=== PATIENT | female | born 1945 | race African-American/Black ===

== ENCOUNTER 2021-07-10 21:27 | Inpatient (IN) | payer MEDICARE, OTHER ==
[2021-07-10 23:42] LABS: Calcium 8.9 mg/dL (7.8-10.44); Chloride 107 mmol/L (98-107); Potassium 3.9 mmol/L (3.5-5.1); Sodium 141 mmol/L (136-145)
[2021-07-10 23:43] LABS: Protein, Total 6.4 g/dL (5.8-8.1)
[2021-07-10 23:45] LABS: Anion Gap 21 mmol/L (10-20); Bilirubin, Total 1.4 mg/dL (0.2-1.2); Carbon Dioxide 17 mmol/L (23-31)
[2021-07-10 23:46] LABS: Calc. Creatinine Clearance 0 mL/min (70-130)
[2021-07-10 23:48] LABS: AST (SGOT) 24 U/L (5-34)
[2021-07-11 00:02] LABS: Hemoglobin 10.9 g/dL (12.0-16.0); Mean Corpuscular HGB CONC 32.5 g/dL (32.0-36.0); Mean Corpuscular Hemoglobin 26.8 pg (27.0-31.0); Mean Corpuscular Volume 82.4 fL (78.0-98.0); Mean Platelet Volume 8.2 fL (7.4-10.4); Platelet Count 403 thou/uL (130-400); RBC Distribution Width 16.1 % (11.5-14.5); Red Blood Cell (RBC) Count 4.07 mill/uL (4.20-5.40); White Blood Cell (WBC) Count 8.7 thou/uL (4.8-10.8)
[2021-07-11] MEDS ORDERED: Cefepime 2 GM VIAL ONE (00:06)
[2021-07-11 00:16] LABS: Albumin 3.2 g/dL (3.4-4.8); BUN (Urea Nitrogen) 19 mg/dL (9.8-20.1); Globulin 3.3 g/dL (2.4-3.5); Glucose 181 mg/dL (83-110)
[2021-07-11 00:26] LABS: #Lymphocytes 0.7 thou/uL (1.20-3.40); #Monocytes 0.3 thou/uL (0.11-0.59); #Neutrophils 2.1 thou/uL (1.40-6.50); %Basophils 0.2 % (0.0-1.0); %Eosinophils 0.7 % (0.0-10.0); %Lymphocytes 23.5 % (21.0-51.0); %Monocytes 7.8 % (0.0-10.0); %Neutrophils 67.8 % (42.0-75.0); Band 3 % (5-11); Large Platelets SLIGHT; Lymphocytes 19 % (21-51); MDiff Complete? YES; Monocytes 9 % (0-10); Neutrophil 69 % (42-75); Platelet Morphology Comment Appears Increased; RBC Morphology Normal
[2021-07-11 00:54] LABS: Bacteria/HPF 4+ HPF (None Seen); Bilirubin Negative (Negative); Blood, Urine Negative (Negative); Clarity Turbid (Clear); Glucose, Urine (Dipstick) Normal (Negative); Ketone, Urine Negative (Negative); Leukocyte 75 Leu/uL (Negative); Nitrite Negative (Negative); Protein, Urine (Dipstick) 20 mg/dL (Neg-Trace); RBC/HPF 0-3 HPF (0-3); Specific Gravity, Urine 1.009 (1.002-1.036); Urobilinogen Normal mg/dL (Less than 2)
[2021-07-11] MEDS ORDERED: Vancomycin 1 GM/200 ML BAG ONE (02:33)
[2021-07-11 03:06] LABS: Lactic Acid 5.3 mmol/L (0.5-2.2)
[2021-07-11] MEDS ORDERED: Acetaminophen 325 MG TAB PO PRN (03:30)
[2021-07-11] MEDS ORDERED: Ondansetron PF 4 MG/2 ML Vial IVP PRN (03:30)
[2021-07-11] MEDS ORDERED: Ondansetron ODT 4 MG TAB SL PRN (03:30)
[2021-07-11] MEDS ORDERED: Dextrose 5% in Water 1,000 ML IV PRN (05:41)
[2021-07-11] MEDS ORDERED: HumaLOG 300 UNITS/3 ML VIAL SC PRN (05:41)
[2021-07-11] MEDS ORDERED: Dextrose 50% Abboject 50 ML SYRINGE SLOW IVP PRN (05:41)
[2021-07-11] MEDS ORDERED: Vancomycin 1 GM in Premix Bag 1 BAG IVPB SCH (07:45)
[2021-07-11 08:06] LABS: #Eosinphils 0.2 thou/uL (0.0-0.7); #Lymphocytes 1.4 thou/uL (1.20-3.40); #Monocytes 0.5 thou/uL (0.11-0.59); #Neutrophils 5.5 thou/uL (1.40-6.50); %Basophils 0.2 % (0.0-1.0); %Eosinophils 2.6 % (0.0-10.0); %Lymphocytes 18.6 % (21.0-51.0); %Monocytes 6.7 % (0.0-10.0); Mean Corpuscular Hemoglobin 26.6 pg (27.0-31.0); Platelet Count 411 thou/uL (130-400); RBC Distribution Width 15.8 % (11.5-14.5); Red Blood Cell (RBC) Count 4.14 mill/uL (4.20-5.40); White Blood Cell (WBC) Count 7.6 thou/uL (4.8-10.8)
[2021-07-11] MEDS: Metoprolol Tartrate 100 MG TAB PO SCH ×2 (08:25→21:41)
[2021-07-11] MEDS: Hydrochlorothiazide 25 MG TAB PO SCH (08:25)
[2021-07-11] MEDS: Enoxaparin Sodium 40 MG/0.4 ML SYRINGE SC SCH (08:25)
[2021-07-11 08:27] LABS: Anion Gap 18 mmol/L (10-20); BUN (Urea Nitrogen) 20 mg/dL (9.8-20.1); Calc. Creatinine Clearance 59 mL/min (70-130); Calcium 9.1 mg/dL (7.8-10.44); Carbon Dioxide 25 mmol/L (23-31); Chloride 105 mmol/L (98-107); Glucose 189 mg/dL (83-110); Potassium 3.5 mmol/L (3.5-5.1); Sodium 144 mmol/L (136-145)
[2021-07-11] MEDS: Lactated Ringer's 1,000 ML IV SCH ×2 (08:27→17:02)
[2021-07-11] MEDS: Sodium Chloride 0.9% 1,000 ML IV SCH ×2 (08:28→12:52)
[2021-07-11] MEDS: Minoxidil 10 MG TAB PO SCH (09:17)
[2021-07-11 09:51] LABS: Lactic Acid 1.9 mmol/L (0.5-2.2)
[2021-07-11] MEDS ORDERED: Cefepime 2 GM in Sodium Chloride 0.9% 100 ML IVPB SCH (13:00)
[2021-07-11] MEDS: Cefepime 2 GM in Sodium Chloride 0.9% 100 ML IVPB SCH (13:48)
[2021-07-12] MEDS: Lactated Ringer's 1,000 ML IV SCH ×4 (00:26→20:51)
[2021-07-12] MEDS: Cefepime 2 GM in Sodium Chloride 0.9% 100 ML IVPB SCH ×2 (01:33→13:19)
[2021-07-12 04:35] LABS: #Eosinphils 0.3 thou/uL (0.0-0.7); #Lymphocytes 0.6 thou/uL (1.20-3.40); #Monocytes 0.4 thou/uL (0.11-0.59); #Neutrophils 8.7 thou/uL (1.40-6.50); %Basophils 0.4 % (0.0-1.0); %Eosinophils 2.8 % (0.0-10.0); %Lymphocytes 6.4 % (21.0-51.0); %Monocytes 3.9 % (0.0-10.0); %Neutrophils 86.5 % (42.0-75.0); Hemoglobin 11.5 g/dL (12.0-16.0); Mean Corpuscular HGB CONC 33.3 g/dL (32.0-36.0); Mean Corpuscular Hemoglobin 27.7 pg (27.0-31.0); Mean Corpuscular Volume 83.2 fL (78.0-98.0); Mean Platelet Volume 7.2 fL (7.4-10.4); Platelet Count 412 thou/uL (130-400); Red Blood Cell (RBC) Count 4.15 mill/uL (4.20-5.40)
[2021-07-12 05:06] LABS: Anion Gap 16 mmol/L (10-20); BUN (Urea Nitrogen) 21 mg/dL (9.8-20.1); Calc. Creatinine Clearance 62 mL/min (70-130); Calcium 8.9 mg/dL (7.8-10.44); Carbon Dioxide 26 mmol/L (23-31); Chloride 106 mmol/L (98-107); Glucose 176 mg/dL (83-110); Potassium 3.6 mmol/L (3.5-5.1); Sodium 144 mmol/L (136-145)
[2021-07-12] MEDS: HumaLOG 300 UNITS/3 ML VIAL SC PRN ×3 (06:09→16:38)
[2021-07-12] MEDS: Minoxidil 10 MG TAB PO SCH (08:38)
[2021-07-12] MEDS: Hydrochlorothiazide 25 MG TAB PO SCH (08:38)
[2021-07-12] MEDS: Metoprolol Tartrate 100 MG TAB PO SCH ×2 (08:38→20:50)
[2021-07-12] MEDS: Enoxaparin Sodium 40 MG/0.4 ML SYRINGE SC SCH ×2 (08:38→20:45)
[2021-07-12 08:54] LABS: Vancomycin, Random 8.2 ug/mL (See Comment)
[2021-07-12] MEDS ORDERED: Vancomycin 1 GM in Premix Bag 1 BAG IVPB SCH (09:00)
[2021-07-12] MEDS ORDERED: VANCOMYCIN 2 GRAM/400 ML BAG 2 GM in Premix Bag 1 BAG IVPB SCH (10:00)
[2021-07-13] MEDS: Lactated Ringer's 1,000 ML IV SCH ×2 (00:36→04:45)
[2021-07-13] MEDS: Cefepime 2 GM in Sodium Chloride 0.9% 100 ML IVPB SCH (00:40)
[2021-07-13 07:30] LABS: #Eosinphils 0.3 thou/uL (0.0-0.7); #Lymphocytes 0.7 thou/uL (1.20-3.40); #Monocytes 0.3 thou/uL (0.11-0.59); #Neutrophils 8.6 thou/uL (1.40-6.50); %Eosinophils 3.3 % (0.0-10.0); %Lymphocytes 7.3 % (21.0-51.0); %Monocytes 3.2 % (0.0-10.0); %Neutrophils 86.1 % (42.0-75.0); Hemoglobin 10.9 g/dL (12.0-16.0); Mean Corpuscular HGB CONC 32.4 g/dL (32.0-36.0); Mean Corpuscular Hemoglobin 26.9 pg (27.0-31.0); Platelet Count 382 thou/uL (130-400); RBC Distribution Width 15.9 % (11.5-14.5); Red Blood Cell (RBC) Count 4.07 mill/uL (4.20-5.40)
[2021-07-13 07:48] LABS: Anion Gap 13 mmol/L (10-20); BUN (Urea Nitrogen) 20 mg/dL (9.8-20.1); Calc. Creatinine Clearance 66 mL/min (70-130); Calcium 8.6 mg/dL (7.8-10.44); Carbon Dioxide 26 mmol/L (23-31); Chloride 107 mmol/L (98-107); Glucose 162 mg/dL (83-110); Potassium 3.5 mmol/L (3.5-5.1); Sodium 142 mmol/L (136-145)
[2021-07-13] MEDS: Hydrochlorothiazide 25 MG TAB PO SCH (08:30)
[2021-07-13] MEDS: Fluticasone Propionate Nasal Spray 16 gm Bottle NASAL SCH (08:31)
[2021-07-13] MEDS: Metoprolol Tartrate 100 MG TAB PO SCH ×2 (08:31→21:58)
[2021-07-13] MEDS: Enoxaparin Sodium 40 MG/0.4 ML SYRINGE SC SCH ×2 (08:31→21:58)
[2021-07-13] MEDS: Minoxidil 10 MG TAB PO SCH (08:32)
[2021-07-13] MEDS: Sulfameth/Trimethoprim DS 800-160mg TAB PO SCH (21:58)
[2021-07-14] MEDS: Lactated Ringer's 1,000 ML IV SCH ×2 (01:00→10:17)
[2021-07-14] MEDS: HumaLOG 300 UNITS/3 ML VIAL SC PRN ×3 (06:33→16:37)
[2021-07-14 06:37] LABS: #Eosinphils 0.4 thou/uL (0.0-0.7); #Lymphocytes 0.7 thou/uL (1.20-3.40); #Monocytes 0.4 thou/uL (0.11-0.59); #Neutrophils 8.2 thou/uL (1.40-6.50); %Basophils 0.1 % (0.0-1.0); %Eosinophils 3.8 % (0.0-10.0); %Lymphocytes 7.6 % (21.0-51.0); %Monocytes 4.3 % (0.0-10.0); %Neutrophils 84.3 % (42.0-75.0); Hemoglobin 10.9 g/dL (12.0-16.0); Mean Corpuscular HGB CONC 32.3 g/dL (32.0-36.0); Mean Corpuscular Hemoglobin 26.5 pg (27.0-31.0); Mean Corpuscular Volume 82.1 fL (78.0-98.0); Mean Platelet Volume 6.9 fL (7.4-10.4); Platelet Count 422 thou/uL (130-400); Red Blood Cell (RBC) Count 4.11 mill/uL (4.20-5.40); White Blood Cell (WBC) Count 9.7 thou/uL (4.8-10.8)
[2021-07-14] MEDS: Metoprolol Tartrate 100 MG TAB PO SCH ×2 (08:44→21:17)
[2021-07-14] MEDS: Hydrochlorothiazide 25 MG TAB PO SCH (08:44)
[2021-07-14] MEDS: Sulfameth/Trimethoprim DS 800-160mg TAB PO SCH ×2 (08:44→21:16)
[2021-07-14] MEDS: Minoxidil 10 MG TAB PO SCH (08:44)
[2021-07-14] MEDS: Enoxaparin Sodium 40 MG/0.4 ML SYRINGE SC SCH ×2 (08:44→21:16)
[2021-07-14] MEDS: Fluticasone Propionate Nasal Spray 16 gm Bottle NASAL SCH (08:45)
[2021-07-14 09:42] LABS: Vancomycin, Trough 25.8 ug/mL
[2021-07-14] MEDS ORDERED: Furosemide 20 MG/2 ML VIAL SLOW IVP SCH (13:30)
[2021-07-14] MEDS ORDERED: Acetaminophen 325 MG TAB PO PRN (15:29)
[2021-07-14 15:52] LABS: SARS-CoV-2 PCR by NAA Not Detected (NotDetected)
[2021-07-15] MEDS: HumaLOG 300 UNITS/3 ML VIAL SC PRN ×2 (06:29→10:56)
[2021-07-15] MEDS: Enoxaparin Sodium 40 MG/0.4 ML SYRINGE SC SCH ×2 (08:09→20:38)
[2021-07-15] MEDS: Fluticasone Propionate Nasal Spray 16 gm Bottle NASAL SCH (08:09)
[2021-07-15] MEDS: Metoprolol Tartrate 100 MG TAB PO SCH ×2 (08:10→20:38)
[2021-07-15] MEDS: Sulfameth/Trimethoprim DS 800-160mg TAB PO SCH (08:10)
[2021-07-15] MEDS: Minoxidil 10 MG TAB PO SCH (08:10)
[2021-07-15] MEDS: Hydrochlorothiazide 25 MG TAB PO SCH (08:10)
[2021-07-15] MEDS ORDERED: Furosemide 20 MG/2 ML VIAL SLOW IVP SCH (09:45)
[2021-07-15 13:01] LABS: Anion Gap 10 mmol/L (10-20); BUN (Urea Nitrogen) 24 mg/dL (9.8-20.1); Calc. Creatinine Clearance 52 mL/min (70-130); Calcium 8.6 mg/dL (7.8-10.44); Carbon Dioxide 27 mmol/L (23-31); Chloride 106 mmol/L (98-107); Glucose 192 mg/dL (83-110); Potassium 3.4 mmol/L (3.5-5.1); Sodium 140 mmol/L (136-145)
[2021-07-15] MEDS ORDERED: Potassium Chloride 20 MEQ TAB PO SCH (15:00)
[2021-07-16 05:26] LABS: #Eosinphils 0.4 thou/uL (0.0-0.7); #Lymphocytes 0.9 thou/uL (1.20-3.40); #Monocytes 0.4 thou/uL (0.11-0.59); %Basophils 0.2 % (0.0-1.0); %Eosinophils 5.5 % (0.0-10.0); %Lymphocytes 11.7 % (21.0-51.0); %Monocytes 5.4 % (0.0-10.0); %Neutrophils 77.3 % (42.0-75.0); Hemoglobin 10.5 g/dL (12.0-16.0); Mean Corpuscular HGB CONC 31.8 g/dL (32.0-36.0); Mean Corpuscular Hemoglobin 26.3 pg (27.0-31.0); Mean Corpuscular Volume 82.9 fL (78.0-98.0); Platelet Count 401 thou/uL (130-400); RBC Distribution Width 16.3 % (11.5-14.5); Red Blood Cell (RBC) Count 3.99 mill/uL (4.20-5.40); White Blood Cell (WBC) Count 7.8 thou/uL (4.8-10.8)
[2021-07-16 05:47] LABS: ALT (SGPT) 12 U/L (8-55); AST (SGOT) 12 U/L (5-34); Albumin 2.9 g/dL (3.4-4.8); Alkaline Phosphatase 105 U/L (40-110); Anion Gap 12 mmol/L (10-20); BUN (Urea Nitrogen) 23 mg/dL (9.8-20.1); Bilirubin, Total 0.7 mg/dL (0.2-1.2); Calc. Creatinine Clearance 52 mL/min (70-130); Calcium 8.6 mg/dL (7.8-10.44); Carbon Dioxide 27 mmol/L (23-31); Chloride 107 mmol/L (98-107); Globulin 2.7 g/dL (2.4-3.5); Glucose 152 mg/dL (83-110); Potassium 3.8 mmol/L (3.5-5.1); Protein, Total 5.6 g/dL (5.8-8.1); Sodium 142 mmol/L (136-145)
[2021-07-16] MEDS ORDERED: Furosemide 40 MG/4 ML VIAL SLOW IVP SCH (07:45)
[2021-07-16] MEDS: Fluticasone Propionate Nasal Spray 16 gm Bottle NASAL SCH (08:01)
[2021-07-16] MEDS: Metoprolol Tartrate 100 MG TAB PO SCH ×2 (08:01→21:14)
[2021-07-16] MEDS: Enoxaparin Sodium 40 MG/0.4 ML SYRINGE SC SCH ×2 (08:01→21:13)
[2021-07-16] MEDS: Hydrochlorothiazide 25 MG TAB PO SCH (08:02)
[2021-07-16] MEDS: Minoxidil 10 MG TAB PO SCH (08:02)
[2021-07-16] MEDS: HumaLOG 300 UNITS/3 ML VIAL SC PRN (10:59)
[2021-07-17] MEDS: HumaLOG 300 UNITS/3 ML VIAL SC PRN (06:27)
[2021-07-17 06:34] LABS: ALT (SGPT) 12 U/L (8-55); AST (SGOT) 13 U/L (5-34); Albumin 3.1 g/dL (3.4-4.8); Alkaline Phosphatase 108 U/L (40-110); Anion Gap 14 mmol/L (10-20); BUN (Urea Nitrogen) 24 mg/dL (9.8-20.1); Bilirubin, Total 0.7 mg/dL (0.2-1.2); Calc. Creatinine Clearance 52 mL/min (70-130); Calcium 8.8 mg/dL (7.8-10.44); Carbon Dioxide 25 mmol/L (23-31); Chloride 104 mmol/L (98-107); Globulin 2.8 g/dL (2.4-3.5); Glucose 153 mg/dL (83-110); Potassium 3.9 mmol/L (3.5-5.1); Protein, Total 5.9 g/dL (5.8-8.1); Sodium 139 mmol/L (136-145)
[2021-07-17] MEDS ORDERED: Furosemide 40 MG/4 ML VIAL SLOW IVP SCH ×2 (07:45→14:00)
[2021-07-17] MEDS: Enoxaparin Sodium 40 MG/0.4 ML SYRINGE SC SCH (08:21)
[2021-07-17] MEDS: Hydrochlorothiazide 25 MG TAB PO SCH (08:21)
[2021-07-17] MEDS: Metoprolol Tartrate 100 MG TAB PO SCH ×2 (08:21→20:38)
[2021-07-17] MEDS: Fluticasone Propionate Nasal Spray 16 gm Bottle NASAL SCH (08:21)
[2021-07-17] MEDS: Minoxidil 10 MG TAB PO SCH (08:22)
[2021-07-17] MEDS: Apixaban 5 MG TAB PO SCH (20:39)
[2021-07-18] MEDS: HumaLOG 300 UNITS/3 ML VIAL SC PRN ×2 (07:01→12:00)
[2021-07-18] MEDS: Hydrochlorothiazide 25 MG TAB PO SCH (08:30)
[2021-07-18] MEDS: Fluticasone Propionate Nasal Spray 16 gm Bottle NASAL SCH (08:30)
[2021-07-18] MEDS: Metoprolol Tartrate 100 MG TAB PO SCH ×2 (08:30→20:48)
[2021-07-18] MEDS: Apixaban 5 MG TAB PO SCH ×2 (08:31→20:48)
[2021-07-18] MEDS ORDERED: Furosemide 40 MG/4 ML VIAL SLOW IVP SCH ×2 (09:15→15:45)
[2021-07-18 09:20] LABS: Anion Gap 13 mmol/L (10-20); BUN (Urea Nitrogen) 26 mg/dL (9.8-20.1); Calc. Creatinine Clearance 52 mL/min (70-130); Carbon Dioxide 29 mmol/L (23-31); Chloride 104 mmol/L (98-107); Glucose 177 mg/dL (83-110); Potassium 3.8 mmol/L (3.5-5.1); Sodium 142 mmol/L (136-145)
[2021-07-19] MEDS: HumaLOG 300 UNITS/3 ML VIAL SC PRN ×3 (05:51→17:51)
[2021-07-19 06:18] LABS: Anion Gap 14 mmol/L (10-20); BUN (Urea Nitrogen) 27 mg/dL (9.8-20.1); Calc. Creatinine Clearance 52 mL/min (70-130); Calcium 8.9 mg/dL (7.8-10.44); Carbon Dioxide 29 mmol/L (23-31); Chloride 102 mmol/L (98-107); Glucose 163 mg/dL (83-110); Potassium 3.6 mmol/L (3.5-5.1); Sodium 141 mmol/L (136-145)
[2021-07-19] MEDS ORDERED: Metolazone 5 MG TAB PO SCH (08:45)
[2021-07-19] MEDS: Apixaban 5 MG TAB PO SCH ×2 (08:52→20:34)
[2021-07-19] MEDS: Fluticasone Propionate Nasal Spray 16 gm Bottle NASAL SCH (08:52)
[2021-07-19] MEDS: Metoprolol Tartrate 100 MG TAB PO SCH ×2 (08:53→20:34)
[2021-07-19] MEDS: Hydrochlorothiazide 25 MG TAB PO SCH (08:53)
[2021-07-19] MEDS ORDERED: Furosemide 40 MG/4 ML VIAL SLOW IVP SCH (09:25)
[2021-07-20] MEDS: HumaLOG 300 UNITS/3 ML VIAL SC PRN ×2 (06:27→16:25)
[2021-07-20] MEDS: Hydrochlorothiazide 25 MG TAB PO SCH (08:37)
[2021-07-20] MEDS: Apixaban 5 MG TAB PO SCH ×2 (08:37→20:33)
[2021-07-20] MEDS: Metoprolol Tartrate 100 MG TAB PO SCH ×2 (08:37→20:33)
[2021-07-20] MEDS: Fluticasone Propionate Nasal Spray 16 gm Bottle NASAL SCH (08:37)
[2021-07-20] MEDS ORDERED: Metolazone 5 MG TAB PO SCH (09:15)
[2021-07-20] MEDS: Torsemide 20 MG TAB PO SCH (10:01)
[2021-07-20 10:39] LABS: Anion Gap 11 mmol/L (10-20); BUN (Urea Nitrogen) 22 mg/dL (9.8-20.1); Calc. Creatinine Clearance 57 mL/min (70-130); Calcium 8.8 mg/dL (7.8-10.44); Carbon Dioxide 32 mmol/L (23-31); Chloride 102 mmol/L (98-107); Glucose 171 mg/dL (83-110); Potassium 3.5 mmol/L (3.5-5.1); Sodium 141 mmol/L (136-145)
[2021-07-20] MEDS: Polyethylene Glycol 3350 17 GM Packet PO PRN (12:19)
[2021-07-20 12:21] VITALS: BMI 50.1
[2021-07-21] MEDS: HumaLOG 300 UNITS/3 ML VIAL SC PRN (05:26)
[2021-07-21 05:50] LABS: Anion Gap 12 mmol/L (10-20); BUN (Urea Nitrogen) 19 mg/dL (9.8-20.1); Calc. Creatinine Clearance 65 mL/min (70-130); Carbon Dioxide 33 mmol/L (23-31); Chloride 99 mmol/L (98-107); Glucose 150 mg/dL (83-110); Potassium 3.4 mmol/L (3.5-5.1); Sodium 141 mmol/L (136-145)
[2021-07-21] MEDS ORDERED: Potassium Chloride 20 MEQ TAB PO SCH (06:30)
[2021-07-21] MEDS ORDERED: Metolazone 5 MG TAB PO SCH ×2 (08:45)
[2021-07-21] MEDS: Hydrochlorothiazide 25 MG TAB PO SCH (09:28)
[2021-07-21] MEDS: Metoprolol Tartrate 100 MG TAB PO SCH ×2 (09:29→21:30)
[2021-07-21] MEDS: Fluticasone Propionate Nasal Spray 16 gm Bottle NASAL SCH (09:31)
[2021-07-21] MEDS: Apixaban 5 MG TAB PO SCH ×2 (09:32→21:30)
[2021-07-21] MEDS: Torsemide 20 MG TAB PO SCH (10:31)
[2021-07-21 10:45] LABS: #Basophils 0.1 thou/uL (0.0-0.2); #Eosinphils 0.4 thou/uL (0.0-0.7); #Lymphocytes 1.8 thou/uL (1.20-3.40); #Monocytes 0.8 thou/uL (0.11-0.59); #Neutrophils 6.7 thou/uL (1.40-6.50); %Basophils 0.5 % (0.0-1.0); %Eosinophils 3.8 % (0.0-10.0); %Lymphocytes 18.6 % (21.0-51.0); %Neutrophils 69.1 % (42.0-75.0); Hemoglobin 10.2 g/dL (12.0-16.0); Mean Corpuscular Volume 81.2 fL (78.0-98.0); Mean Platelet Volume 6.8 fL (7.4-10.4); Platelet Count 466 thou/uL (130-400); RBC Distribution Width 16.4 % (11.5-14.5); Red Blood Cell (RBC) Count 3.93 mill/uL (4.20-5.40); White Blood Cell (WBC) Count 9.7 thou/uL (4.8-10.8)
[2021-07-21] MEDS: Polyethylene Glycol 3350 17 GM Packet PO PRN (11:35)
[2021-07-21 12:18] LABS: SARS-CoV-2 PCR by NAA Not Detected (NotDetected)
[2021-07-22 03:57] LABS: #Basophils 0.1 thou/uL (0.0-0.2); #Eosinphils 0.4 thou/uL (0.0-0.7); #Lymphocytes 1.8 thou/uL (1.20-3.40); #Monocytes 0.9 thou/uL (0.11-0.59); #Neutrophils 6.5 thou/uL (1.40-6.50); %Basophils 0.9 % (0.0-1.0); %Eosinophils 3.8 % (0.0-10.0); %Lymphocytes 18.2 % (21.0-51.0); %Monocytes 9.5 % (0.0-10.0); %Neutrophils 67.6 % (42.0-75.0); Hemoglobin 10.1 g/dL (12.0-16.0); Mean Corpuscular HGB CONC 32.1 g/dL (32.0-36.0); Mean Corpuscular Hemoglobin 26.2 pg (27.0-31.0); Mean Corpuscular Volume 81.6 fL (78.0-98.0); Mean Platelet Volume 6.4 fL (7.4-10.4); Platelet Count 456 thou/uL (130-400); RBC Distribution Width 16.4 % (11.5-14.5); Red Blood Cell (RBC) Count 3.84 mill/uL (4.20-5.40); White Blood Cell (WBC) Count 9.6 thou/uL (4.8-10.8)
[2021-07-22 04:16] LABS: Anion Gap 13 mmol/L (10-20); BUN (Urea Nitrogen) 19 mg/dL (9.8-20.1); Calc. Creatinine Clearance 71 mL/min (70-130); Carbon Dioxide 34 mmol/L (23-31); Chloride 95 mmol/L (98-107); Glucose 156 mg/dL (83-110); Potassium 3.6 mmol/L (3.5-5.1); Sodium 138 mmol/L (136-145)
[2021-07-22] MEDS: HumaLOG 300 UNITS/3 ML VIAL SC PRN (06:28)
[2021-07-22] MEDS ORDERED: Metolazone 5 MG TAB PO SCH (09:15)
[2021-07-22] MEDS: Metoprolol Tartrate 100 MG TAB PO SCH (09:32)
[2021-07-22] MEDS: Apixaban 5 MG TAB PO SCH (09:34)
[2021-07-22] MEDS: Fluticasone Propionate Nasal Spray 16 gm Bottle NASAL SCH (09:35)
[2021-07-22] MEDS: Hydrochlorothiazide 25 MG TAB PO SCH (09:36)
[2021-07-22] MEDS ORDERED: Docusate Calcium (SURFAK) 240 MG CAP PO SCH ×3 (10:14→21:00)
[2021-07-22 10:32] VITALS: BP 150/82; TEMP 98.3
[2021-07-22] MEDS: Torsemide 20 MG TAB PO SCH (11:22)
== END 2021-07-22 14:17 | DRG 299 ==
LOC: ERS 21:27 → MSONC 07-11 03:21
PROVIDERS: ADMIT Family Medicine; ATTEND Family Medicine
DX: E11.51 Type 2 diabetes mellitus with diabetic peripheral angiopathy without gangrene (principal); I50.33 Acute on chronic diastolic (congestive) heart failure; E87.2 Acidosis; L97.929 Non-pressure chronic ulcer of unspecified part of left lower leg with unspecified severity; I13.0 Hypertensive heart and chronic kidney disease with heart failure and stage 1 through stage 4 chronic kidney disease, or unspecified chronic kidney disease; I82.621 Acute embolism and thrombosis of deep veins of right upper extremity; Z20.822 Contact with and (suspected) exposure to COVID-19; E11.22 Type 2 diabetes mellitus with diabetic chronic kidney disease; I27.20 Pulmonary hypertension, unspecified; M79.81 Nontraumatic hematoma of soft tissue; I07.1 Rheumatic tricuspid insufficiency; E11.622 Type 2 diabetes mellitus with other skin ulcer; I87.2 Venous insufficiency (chronic) (peripheral); N18.9 Chronic kidney disease, unspecified; Z79.84 Long term (current) use of oral hypoglycemic drugs
CPT/HCPCS: 36415; 36416; 36556; 71045; 80048; 80053; 80202; 81003; 81015; 83605; 83880; 84145; 85025; 85379; 85652; 86140; 87040; 87077; 87086; 87149; 93005; 93306; 93923; 96374; 96375; J0692; J1650; J1815; J1940; J3370; J3490; J7030; J7120; U0003; U0005